=== PATIENT | male | born 1985 | race American Indian/Alaskan Native ===

== ENCOUNTER 2019-02-19 02:01 | Emergency (ER) | payer OTHER ==
[2019-02-19 03:28] LABS: Basophils # (Auto) 0.1 K/mm3 (0.0-0.1); Basophils % (Auto) 0.8 % (0.0-1.8); Eosinophils # (Auto) 0.2 K/mm3 (0.0-0.4); Eosinophils % (Auto) 2.3 % (0.0-4.3); Hematocrit 43.1 % (35.5-45.6); Hemoglobin 14.6 gm/dl (11.8-15.2); Lymphocytes # (Auto) 2.7 K/mm3 (1.2-5.4); Lymphocytes % (Auto) 26.3 % (13.4-35.0); Mean Corpuscular HGB Conc 34 % (32-34); Mean Corpuscular Volume 89 fl (84-94); Monocytes # (Auto) 0.7 K/mm3 (0.0-0.8); Monocytes % (Auto) 6.9 % (0.0-7.3); Platelet Count 312 K/mm3 (140-440); Red Blood Count 4.87 M/mm3 (3.65-5.03); Red Cell Distribution Width 13.7 % (13.2-15.2)
[2019-02-19 03:34] LABS: Bilirubin,Urine NEG (Negative); Blood,Urine NEG (Negative); Color,Urine Yellow (Yellow); Protein,Urine <15 mg/dL mg/dL (Negative); Urobilinogen,Urine < 2.0 mg/dL (<2.0)
[2019-02-19 04:07] LABS: Alanine Aminotransferase 25 units/L (7-56); Albumin 4.4 g/dL (3.9-5); BUN/Creatinine Ratio 14; Blood Urea Nitrogen 10 mg/dL (9-20); Calcium 9.5 mg/dL (8.4-10.2); Hemolysis Index 18
[2019-02-19] MEDS ORDERED: SODIUM CHLORIDE 0.9% 1000 ML 1,000 ML IV ONE ×2 (05:40→07:52)
[2019-02-19] MEDS ORDERED: KETOROLAC 60 MG/2 ML INJ IVP ONE (05:40)
[2019-02-19] MEDS ORDERED: INSULIN REGULAR, HUMAN 100 UNITS/1 ML IV ONE (05:41)
--- NOTE | 2019-02-19 05:45 | Event Note ---
ED Screening Note Date of service: 02/19/19 Time: 05:43 ED Screening Note: This is a 33-year-old male complaining of abdominal pain that is going around to his back this been ongoing for a couple days. He denies any fever or chills. Denies any nausea or vomiting. Denies any chest pain or shortness of breath. Denies any blood in his urine. Patient is a diabetic. Denies any diarrhea. Denies any constipation. Denies any urinary burning, frequency or urgency Abdomen: Soft with mild tenderness but no guarding or rebound and normal bowel sounds. This initial assessment/diagnostic orders/clinical plan/treatment(s) is/are subject to change based on patients health status, clinical progression and re- assessment by fellow clinical providers in the ED. Further treatment and workup at subsequent clinical providers discretion. Patient/guardian urged not to elope from the ED as their condition may be serious if not clinically assessed and managed. Initial orders include: Abdominal pain and male-labs, urinalysis and CT scan of the abdomen and pelvis with IV contrast.
--- NOTE | 2019-02-19 06:44 | Cat Scan Report ---
CT ABDOMEN AND PELVIS WITH CONTRAST INDICATION / CLINICAL INFORMATION: abdominal pain. TECHNIQUE: Axial CT images were obtained through the abdomen and pelvis after IV contrast. All CT scans at this location are performed using CT dose reduction for ALARA by means of automated exposure control. COMPARISON: None available. FINDINGS: LOWER CHEST: No significant abnormality. LIVER: No significant abnormality. GALLBLADDER: No significant abnormality. BILE DUCTS: No significant abnormality. No gallstones. PANCREAS: Mild peripancreatic inflammation and edema, especially around the head of the pancreas. No peripancreatic fluid collection or pancreatic necrosis. SPLEEN: No significant abnormality. ADRENALS: No significant abnormality. RIGHT KIDNEY and URETER: No significant abnormality. LEFT KIDNEY and URETER: No significant abnormality. STOMACH and SMALL BOWEL: No significant abnormality. COLON: No significant abnormality. APPENDIX: No significant abnormality. PERITONEUM: No free fluid. No free air. No fluid collection. LYMPH NODES: No significant adenopathy. AORTA and ARTERIES: No significant abnormality. IVC and VEINS: No significant abnormality. URINARY BLADDER: No significant abnormality. REPRODUCTIVE ORGANS: Prominent calcifications of the vas deferens bilaterally. ADDITIONAL FINDINGS: None. SKELETAL SYSTEM: No significant abnormality. IMPRESSION: 1. Mild peripancreatic inflammation and edema. Clinical and laboratory correlation for acute pancreat itis is recommended. 2. No gallstones identified. 3. Prominent calcifications of the vas deferens, a finding most commonly seen in diabetes mellitus. Signer Name: Natacha Hays MD Signed: 02/19/2019 6:40 AM Workstation Name: [id number]
[2019-02-19 08:47] VITALS: BP 134/87
--- NOTE | 2019-02-19 09:13 | Emergency Department Report ---
ED Abdominal Pain HPI - General Chief Complaint: Abdominal Pain Stated Complaint: BACK/ABD PAIN Time Seen by Provider: 02/19/19 05:00 Source: patient Mode of arrival: Ambulatory Limitations: No Limitations - History of Present Illness Initial Comments: This is a 33-year-old male with a history of hypertension and diabetes controlled with medication followed by his primary care physician presents to ED complaining of lower abdominal pain for the past 2 days. She describes abdominal pain as crampy achy type with no radiation elsewhere. Patient denies nausea vomiting diarrhea or fever. Patient states he is eating normally. He denies chest pain, shortness of breath or any other symptoms. He states that he takes his lisinopril for blood pressure and takes levemir and metformin for diabetes daily. MD Complaint: abdominal pain -: days(s) (2) Location: LLQ, RLQ Radiation: none Migration to: no migration Severity scale (0 -10): 2 Quality: cramping, aching Consistency: now resolved Associated Symptoms: denies: nausea, vomiting, diarrhea, fever, constipation, dysuria - Related Data Previous Rx's Medication Instructions Recorded Last Taken Type Dicyclomine [Bentyl] 10 mg PO TID #30 capsule 02/19/19 Unknown Rx Allergies Allergy/AdvReac Type Severity Reaction Status Date / Time lisinopril Allergy Swelling Verified 02/19/19 03:00 ED Review of Systems ROS: Stated complaint: BACK/ABD PAIN Other details as noted in HPI Comment: All other systems reviewed and negative ED Past Medical Hx - Past Medical History Previous Medical History?: Yes Hx Hypertension: Yes Hx Diabetes: Yes - Surgical History Past Surgical History?: No - Social History Smoking Status: Never Smoker Substance Use Type: None - Medications Home Medications: Home Medications Medication Instructions Recorded Confirmed Last Taken Type Dicyclomine [Bentyl] 10 mg PO TID #30 capsule 02/19/19 Unknown Rx ED Physical Exam - General Limitations: No Limitations General appearance: alert, in no apparent distress - Head Head exam: Present: atraumatic, normocephalic - Eye Eye exam: Present: normal appearance - ENT ENT exam: Present: mucous membranes moist - Neck Neck exam: Present: normal inspection - Respiratory Respiratory exam: Present: normal lung sounds bilaterally. Absent: respiratory distress - Cardiovascular Cardiovascular Exam: Present: regular rate, normal rhythm. Absent: systolic murmur, diastolic murmur, rubs, gallop - GI/Abdominal GI/Abdominal exam: Present: soft, normal bowel sounds - Rectal Rectal exam: Present: deferred - Extremities Exam Extremities exam: Present: normal inspection - Back Exam Back exam: Present: normal inspection - Neurological Exam Neurological exam: Present: alert, oriented X3 - Psychiatric Psychiatric exam: Present: normal affect, normal mood - Skin Skin exam: Present: warm, dry, intact, normal color. Absent: rash ED Course Vital Signs 02/19/19 02/19/19 02:32 08:47 Temperature 98.5 F 98.4 F Pulse Rate 77 65 Respiratory 18 13 Rate Blood Pressure 134/84 134/87 O2 Sat by Pulse 97 100 Oximetry ED Medical Decision Making - Lab Data Result diagrams: 02/19/19 03:17 02/19/19 03:17 Laboratory Last Values WBC 10.2 K/mm3 (4.5-11.0) 02/19/19 03:17 RBC 4.87 M/mm3 (3.65-5.03) 02/19/19 03:17 Hgb 14.6 gm/dl (11.8-15.2) 02/19/19 03:17 Hct 43.1 % (35.5-45.6) 02/19/19 03:17 MCV 89 fl (84-94) 02/19/19 03:17 MCH 30 pg (28-32) 02/19/19 03:17 MCHC 34 % (32-34) 02/19/19 03:17 RDW 13.7 % (13.2-15.2) 02/19/19 03:17 Plt Count 312 K/mm3 (140-440) 02/19/19 03:17 Lymph % (Auto) 26.3 % (13.4-35.0) 02/19/19 03:17 [place] % (Auto) 6.9 % (0.0-7.3) 02/19/19 03:17 Eos % (Auto) 2.3 % (0.0-4.3) 02/19/19 03:17 Baso % (Auto) 0.8 % (0.0-1.8) 02/19/19 03:17 Lymph # 2.7 K/mm3 (1.2-5.4) 02/19/19 03:17 [place] # 0.7 K/mm3 (0.0-0.8) 02/19/19 03:17 Eos # 0.2 K/mm3 (0.0-0.4) 02/19/19 03:17 Baso # 0.1 K/mm3 (0.0-0.1) 02/19/19 03:17 Seg Neutrophils % 63.7 % (40.0-70.0) 02/19/19 03:17 Seg Neutrophils # 6.5 K/mm3 (1.8-7.7) 02/19/19 03:17 Sodium 137 mmol/L (137-145) 02/19/19 03:17 Potassium 4.8 mmol/L (3.6-5.0) 02/19/19 03:17 Chloride 99.3 mmol/L (98-107) 02/19/19 03:17 Carbon Dioxide 24 mmol/L (22-30) 02/19/19 03:17 Anion Gap 19 mmol/L 02/19/19 03:17 BUN 10 mg/dL (9-20) 02/19/19 03:17 Creatinine 0.7 mg/dL (0.8-1.5) L 02/19/19 03:17 Estimated GFR > 60 ml/min 02/19/19 03:17 BUN/Creatinine Ratio 14 % 02/19/19 03:17 Glucose 319 mg/dL (75-100) H 02/19/19 03:17 Calcium 9.5 mg/dL (8.4-10.2) 02/19/19 03:17 Total Bilirubin 0.40 mg/dL (0.1-1.2) 02/19/19 03:17 AST 19 units/L (5-40) 02/19/19 03:17 ALT 25 units/L (7-56) 02/19/19 03:17 Alkaline Phosphatase 90 units/L (35-129) 02/19/19 03:17 Total Protein 8.3 g/dL (6.3-8.2) H 02/19/19 03:17 Albumin 4.4 g/dL (3.9-5) 02/19/19 03:17 Albumin/Globulin Ratio 1.1 % 02/19/19 03:17 Lipase 503 units/L (13-60) H 02/19/19 03:17 Urine Color Yellow (Yellow) 02/19/19 03:22 Urine Turbidity Clear (Clear) 02/19/19 03:22 Urine pH 7.0 (5.0-7.0) 02/19/19 03:22 Ur Specific [place] 1.030 (1.003-1.030) 02/19/19 03:22 Urine Protein <15 mg/dl mg/dL (Negative) 02/19/19 03:22 Urine Glucose (UA) >=500 mg/dL (Negative) 02/19/19 03:22 Urine Ketones Tr mg/dL (Negative) 02/19/19 03:22 Urine Blood Neg (Negative) 02/19/19 03:22 Urine Nitrite Neg (Negative) 02/19/19 03:22 Urine Bilirubin Neg (Negative) 02/19/19 03:22 Urine Urobilinogen < 2.0 mg/dL (<2.0) 02/19/19 03:22 Ur Leukocyte Esterase Neg (Negative) 02/19/19 03:22 Urine WBC (Auto) 6.0 /HPF (0.0-6.0) 02/19/19 03:22 Urine RBC (Auto) 1.0 /HPF (0.0-6.0) 02/19/19 03:22 U Epithel Cells (Auto) 1.0 /HPF (0-13.0) 02/19/19 03:22 - Radiology Data Radiology results: report reviewed, image reviewed CT ABDOMEN AND PELVIS WITH CONTRAST INDICATION / CLINICAL INFORMATION: abdominal pain. TECHNIQUE: Axial CT images were obtained through the abdomen and pelvis after IV contrast. All CT scans at this location are performed using CT dose reduction for ALARA by means of automated exposure control. COMPARISON: None available. FINDINGS: LOWER CHEST: No significant abnormality. LIVER: No significant abnormality. GALLBLADDER: No significant abnormality. BILE DUCTS: No significant abnormality. No gallstones. PANCREAS: Mild peripancreatic inflammation and edema, especially around the head of the pancreas. No peripancreatic fluid collection or pancreatic necrosis. SPLEEN: No significant abnormality. ADRENALS: No significant abnormality. RIGHT KIDNEY and URETER: No significant abnormality. LEFT KIDNEY and URETER: No significant abnormality. STOMACH and SMALL BOWEL: No significant abnormality. COLON: No significant abnormality. APPENDIX: No significant abnormality. PERITONEUM: No free fluid. No free air. No fluid collection. LYMPH NODES: No significant adenopathy. AORTA and ARTERIES: No significant abnormality. IVC and VEINS: No significant abnormality. URINARY BLADDER: No significant abnormality. REPRODUCTIVE ORGANS: Prominent calcifications of the vas deferens bilaterally. ADDITIONAL FINDINGS: None. SKELETAL SYSTEM: No significant abnormality. IMPRESSION: 1. Mild peripancreatic inflammation and edema. Clinical and laboratory correlation for acute pancreatitis is recommended. 2. No gallstones identified. 3. Prominent calcifications of the vas deferens, a finding most commonly seen in diabetes mellitus. Signer Name: Natacha Hays MD Signed: 02/19/2019 6:40 AM Workstation Name: [id number] Transcribed By: RODY Dictated By: Rogelio Hays MD Electronically Authenticated By: Rogelio Hays MD Signed Date/Time: 02/19/19 5040 - Medical Decision Making 33-year-old male presents with abdominal pain that has not resolved. CBC within normal limits, CMP within normal limits except for elevated lipase and glucose. he received 2 L of fluids in the ED and Toradol for pain. CT scan of the abdomen shows inflamed pancreas otherwise no abnormal findings. I discussed all this findings with the patient. Patient is nontender abdomen in the ED did not have any nausea or vomiting. Due to patient's history of diabetes and chronic pancreatitis, patient will be given an patient access specialist referral. Discussed the patient be on a liquid diet for the next 2 days. Patient is not effective shows no signs of acute hepatitis therefore Patient will be discharged. [place] sleeping laying comfortably on the ED bed Critical care attestation.: If time is entered above; I have spent that time in minutes in the direct care of this critically ill patient, excluding procedure time. 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 Take all your medications as you've been prescribed. If you have any worsening symptoms or develop new symptoms please return to ED immediately. Prescriptions: Dicyclomine [Bentyl] 10 mg PO TID #30 capsule Referrals: PRIMARY CARE,MD [Primary Care Provider] - 3-5 Days [facility] [Provider Group] - 3-5 Days [facility] [Provider Group] - 3-5 Days Forms: Work/School Release Form(ED) Time of Disposition: 09:19
== END 2019-02-19 10:08 | disposition home or self-care (01) ==
LOC: ED 02:01
DX: K86.1 Other chronic pancreatitis (principal); E11.9 Type 2 diabetes mellitus without complications; I10 Essential (primary) hypertension; Z79.4 Long term (current) use of insulin; Z88.5 Allergy status to narcotic agent; Z79.899 Other long term (current) drug therapy
CPT/HCPCS: 36415; 74177; 80053; 81001; 82962; 83690; 85025; 96374; 99284; J1885; J7030